=== PATIENT | female | born 1950 | race Caucasian/White ===

== ENCOUNTER 2020-03-07 18:45 | Inpatient (IN) ==
[2020-03-07] MEDS ORDERED: *HR* FentaNYL (PF) 100 MCG/2 ML VIAL ONE (20:35)
[2020-03-07] MEDS ORDERED: *HR* Midazolam HCl 5 MG/5 ML VIAL IVP ONE ×2 (20:36→22:13)
[2020-03-07 20:59] LABS: Adenovirus Not Detected (Not Detect); Bordetella Pertussis Not Detected (Not Detect); Chlamydophila pneumoniae Not Detected (Not Detect); Coronavirus 229E Not Detected (Not Detect); Coronavirus HKU1 Not Detected (Not Detect); Coronavirus NL63 Not Detected (Not Detect); Coronavirus OC43 Not Detected (Not Detect); Human Metapneumovirus Not Detected (Not Detect); Human Rhinovirus/Enterovirus Not Detected (Not Detect); Influenza A Subtype 2009 H1 Not Detected (Not Detect); Influenza B Not Detected (Not Detect); Mycoplasma pneumoniae Not Detected (Not Detect); Parainfluenza Virus 1 Not Detected (Not Detect); Parainfluenza Virus 2 Not Detected (Not Detect); Parainfluenza Virus 3 Not Detected (Not Detect); Parainfluenza Virus 4 Not Detected (Not Detect); Respiratory Syncytial Virus Not Detected (Not Detect)
[2020-03-07] MEDS: 0.9 % Sodium Chloride 1,000 ML IVC ONE (21:43)
[2020-03-07] MEDS ORDERED: Naloxone 0.4 MG/ML INJ IVP PRN (22:05)
[2020-03-07] MEDS ORDERED: *HR* FentaNYL (PF) 100 MCG/2 ML VIAL IVP ONE (22:13)
[2020-03-08 00:01] LABS: Hemoglobin 8.5 g/dL (11.5-15.4); Mean Corpuscular HGB Conc 32.7 g/dL (31.6-35.5); Mean Corpuscular Hemoglobin 30.8 pg (28.0-33.3); Mean Corpuscular Volume 94.2 fL (83.0-100.0); Mean Platelet Volume 8.1 fL (9.4-12.4); Platelet Count 280 K/mcL (140-400); Red Blood Count 2.76 M/mcL (3.82-4.97); White Blood Count 8.2 K/mcL (4.3-11.1)
[2020-03-08] MEDS: Pantoprazole 40 MG in 0.9 % Sodium Chloride Mini Bag 100 ML IVC SCH ×2 (00:18→06:29)
[2020-03-08] MEDS: 0.9 % Sodium Chloride 1,000 ML IVC ONE (00:19)
[2020-03-08 06:16] LABS: Basophils % 0.3 %; Eosinophils # 0.1 K/mcL (0.0-0.6); Eosinophils % 1.5 %; Hematocrit 28.2 % (35.3-44.9); Immature Granulocytes % 0.5 % (0-4); Lymphocytes % 13.4 %; Mean Corpuscular HGB Conc 31.9 g/dL (31.6-35.5); Mean Corpuscular Hemoglobin 29.8 pg (28.0-33.3); Mean Corpuscular Volume 93.4 fL (83.0-100.0); Mean Platelet Volume 7.9 fL (9.4-12.4); Monocytes # 0.5 K/mcL (0.0-1.3); Monocytes % 6.7 %; Neutrophils # 5.7 K/mcL (1.6-8.9); Platelet Count 310 K/mcL (140-400); Red Blood Count 3.02 M/mcL (3.82-4.97); Red Cell Distribution Width 12.1 % (11.5-14.5); Segmented Neutrophils % 77.6 %; White Blood Count 7.3 K/mcL (4.3-11.1)
[2020-03-08 06:31] LABS: Prothrombin Time 11.8 Seconds (9.4-12.1)
[2020-03-08] MEDS: Pantoprazole 40 MG VIAL IVP SCH ×2 (06:32→17:23)
[2020-03-08 06:34] LABS: Activated Partial Thrombo Time 34.5 Seconds (26.0-36.0)
[2020-03-08 06:35] LABS: Calcium 8.5 mg/dL (8.6-10.3); Magnesium 1.8 mg/dL (1.6-2.6); Phosphorous 2.8 mg/dL (2.7-4.5); Potassium 4.2 mEq/L (3.5-5.1)
[2020-03-08 06:37] LABS: % Iron Saturation 14 % (15-50); Iron 27 mcg/dL (50-170); Transferrin 138 mg/dL (203-362)
[2020-03-08 06:38] LABS: Bilirubin,Urine Negative (Negative); Blood,Urine Negative (Negative); Clarity,Urine Clear (Clear); Color,Urine Colorless (Yellow); Glucose,Urine (UA) Normal (Normal); Ketones,Urine Negative (Negative); Leukocyte Esterase,Urine Negative (Negative); Nitrite,Urine Negative (Negative); Protein,Urine Negative (Neg-Trace); Specific Gravity,Urine 1.007 (1.010-1.025); Urobilinogen,Urine Normal (Normal)
[2020-03-08 06:54] LABS: Ferritin 105 ng/mL (10-120)
[2020-03-08] MEDS ORDERED: Piperacillin/Tazobactam 3.375 GM in 0.9 % Sodium Chloride Mini Bag 100 ML IVPB SCH (08:00)
[2020-03-08] MEDS: Sucralfate 1 GM TABLET PO SCH ×4 (08:52→22:38)
[2020-03-08] MEDS: Loratadine 10 MG TABLET PO SCH (09:12)
[2020-03-08] MEDS ORDERED: Ipratropium/Albuterol Neb 3 ML IH PRN (10:00)
[2020-03-08] MEDS: Budesonide/Formoterol 160/4.5 1 PUFF INH IH SCH ×2 (10:57→20:04)
[2020-03-08] MEDS: Stomatitis Mixture 5 ML UDC PO SCH ×2 (15:08→21:12)
[2020-03-09] MEDS: Pantoprazole 40 MG VIAL IVP SCH ×2 (05:42→17:49)
[2020-03-09 07:48] LABS: Hematocrit 27.6 % (35.3-44.9); Hemoglobin 8.7 g/dL (11.5-15.4); Mean Corpuscular HGB Conc 31.5 g/dL (31.6-35.5); Mean Corpuscular Hemoglobin 29.8 pg (28.0-33.3); Mean Corpuscular Volume 94.5 fL (83.0-100.0); Mean Platelet Volume 8.5 fL (9.4-12.4); Platelet Count 331 K/mcL (140-400); Red Blood Count 2.92 M/mcL (3.82-4.97); Red Cell Distribution Width 11.8 % (11.5-14.5); White Blood Count 6.8 K/mcL (4.3-11.1)
[2020-03-09] MEDS: Budesonide/Formoterol 80/4.5 1 PUFF INH IH SCH ×2 (07:50→20:42)
[2020-03-09] MEDS: Ipratropium/Albuterol Neb 3 ML IH SCH ×3 (07:50→20:42)
[2020-03-09 07:59] LABS: BUN/Creatinine Ratio 9 (6-26); Blood Urea Nitrogen 9 mg/dL (8-23); Calcium 9.1 mg/dL (8.6-10.3); Carbon Dioxide 28 mEq/L (23-29); Chloride 98 mEq/L (98-107); Glucose 59 mg/dL (70-105); Osmolality,Calculated 274 (280-300); Potassium 3.8 mEq/L (3.5-5.1); Sodium 134 mEq/L (136-145); eGFR For African Americans > 60 (> 60); eGFR For Non-African Americans 55 (> 60)
[2020-03-09] MEDS: Sucralfate 1 GM TABLET PO SCH ×4 (08:34→22:09)
[2020-03-09] MEDS: Cholecalciferol (D-3) 1,000 UNIT (25MCG) TABLET PO SCH (08:35)
[2020-03-09] MEDS: Loratadine 10 MG TABLET PO SCH (08:35)
[2020-03-09] MEDS ORDERED: hydrOXYzine pamoate 25 MG CAPSULE PO PRN (11:52)
[2020-03-09] MEDS: Stomatitis Mixture 5 ML UDC PO SCH ×3 (11:53→20:24)
[2020-03-10] MEDS: Pantoprazole 40 MG VIAL IVP SCH (05:57)
[2020-03-10] MEDS: Budesonide/Formoterol 80/4.5 1 PUFF INH IH SCH (07:27)
[2020-03-10] MEDS: Ipratropium/Albuterol Neb 3 ML IH SCH ×2 (07:27→15:29)
[2020-03-10] MEDS: Sucralfate 1 GM TABLET PO SCH ×2 (07:31→11:36)
[2020-03-10] MEDS: Stomatitis Mixture 5 ML UDC PO SCH (07:31)
[2020-03-10] MEDS: Loratadine 10 MG TABLET PO SCH (07:31)
[2020-03-10] MEDS: Cholecalciferol (D-3) 1,000 UNIT (25MCG) TABLET PO SCH (07:31)
[2020-03-10 09:02] LABS: Basophils % 0.5 %; Eosinophils # 0.2 K/mcL (0.0-0.6); Eosinophils % 2.6 %; Hematocrit 31.1 % (35.3-44.9); Immature Granulocytes % 0.5 % (0-4); Lymphocytes # 0.9 K/mcL (0.6-4.6); Lymphocytes % 11.2 %; Mean Corpuscular HGB Conc 32.2 g/dL (31.6-35.5); Mean Corpuscular Hemoglobin 29.9 pg (28.0-33.3); Mean Corpuscular Volume 92.8 fL (83.0-100.0); Mean Platelet Volume 8.5 fL (9.4-12.4); Monocytes # 0.5 K/mcL (0.0-1.3); Monocytes % 6.1 %; Neutrophils # 6.3 K/mcL (1.6-8.9); Platelet Count 410 K/mcL (140-400); Red Blood Count 3.35 M/mcL (3.82-4.97); Red Cell Distribution Width 11.9 % (11.5-14.5); Segmented Neutrophils % 79.1 %
[2020-03-10 09:22] LABS: BUN/Creatinine Ratio 8 (6-26); Blood Urea Nitrogen 8 mg/dL (8-23); Calcium 9.6 mg/dL (8.6-10.3); Carbon Dioxide 30 mEq/L (23-29); Chloride 93 mEq/L (98-107); Glucose 96 mg/dL (70-105); Osmolality,Calculated 272 (280-300); Potassium 3.3 mEq/L (3.5-5.1); Sodium 132 mEq/L (136-145); eGFR For African Americans > 60 (> 60); eGFR For Non-African Americans 57 (> 60)
[2020-03-10] MEDS ORDERED: Potassium Chloride Elixir 20 MEQ/15 ML UDC PO ONE (09:27)
[2020-03-10 09:42] VITALS: BP 130/70
== END 2020-03-10 16:17 | DRG 378 ==
LOC: CDU → 3ANU 21:27
PROVIDERS: ADMIT Student in an Organized Health Care Education/Training Program; ATTEND Student in an Organized Health Care Education/Training Program